=== PATIENT | female | born 1945 | race Caucasian/White ===

== ENCOUNTER 2017-10-28 15:54 | Emergency (ER) | payer MEDICARE ==
[~2017-10-28] VITALS: Ht 167.6 cm; Wt 68.0 kg
[~2017-10-28 15:54] MED LIST: AZO CRANBERRY250 MG PO; CEPHALEXIN500 MG PO
[2017-10-28] MEDS ORDERED: CIPRO250 MG PO (16:49)
== END 2017-10-28 17:02 | disposition home or self-care (01) ==
LOC: ED 15:54
DX: N39.0 Urinary tract infection, site not specified (principal); F17.200 Nicotine dependence, unspecified, uncomplicated
CPT/HCPCS: 81001; 99283

== ENCOUNTER 2018-12-27 08:35 | Emergency (ER) | payer MEDICARE ==
[~2018-12-27] VITALS: Ht 167.6 cm; Wt 68.0 kg
[~2018-12-27 08:35] MED LIST changes: +CIPRO250 MG PO
--- OUTSIDE RECORDS SUMMARY | 2018-12-27 08:38 | XMS ---
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 Lizzie has no Care Guidelines for this patient. Ekta VISIT COUNT (12 MO.) 1 [facility] ED [address] [facility] TOTAL 2 NOTE: Visits indicate total known visits. ED/UCC VISIT TRACKING (12 MO.) 12/27/2018 08:35 [facility] [place] TYPE: Emergency COMPLAINT: - URINE PROBLEM 12/15/2018 10:56 [facility] [place] TYPE: Emergency DIAGNOSES: - Dysuria - Urinary Frequency - Acute cystitis without hematuria INPATIENT VISIT TRACKING (12 MO.) No inpatient visits to display in this time frame [email or web address]
[2018-12-27] MEDS ORDERED: KEFLEX500 MG PO (09:24)
== END 2018-12-27 09:32 | disposition home or self-care (01) ==
LOC: ED 08:35
DX: N30.91 Cystitis, unspecified with hematuria (principal); F17.200 Nicotine dependence, unspecified, uncomplicated
CPT/HCPCS: 81001; 87077; 87088; 87186; 99283

== ENCOUNTER 2019-07-07 11:02 | Emergency (ER) | payer MEDICARE ==
[~2019-07-07] VITALS: Ht 167.6 cm; Wt 68.0 kg
[~2019-07-07 11:02] MED LIST changes: +KEFLEX500 MG PO
[2019-07-07] MEDS ORDERED: NITROGLYCERIN0.4 MG SL (12:16)
--- NOTE | 2019-07-07 23:18 | EKG ---
[facility] [address] [place], [place] [address] Signed Normal sinus rhythm Inferior infarct , age undetermined Abnormal ECG No previous ECGs available Confirmed by EDDIE VASQUEZ MD ([id number]) on 07/07/2019 11:18:08 PM Electronically Signed By: EDDIE VASQUEZ MD 07/07/19 2318 PATIENT NAME: LUIS BROWN Electrocardiogram DATE OF : 43 PHYSICIAN: EDDIE VASQUEZ MD REPORT #: [id number] REPORT IS CONFIDENTIAL AND NOT TO BE RELEASED WITHOUT AUTHORIZATION
== END 2019-07-07 12:45 | disposition home or self-care (01) ==
LOC: ED 11:02
DX: R07.89 Other chest pain (principal); F17.200 Nicotine dependence, unspecified, uncomplicated
CPT/HCPCS: 71045; 80053; 83735; 84484; 85025; 93005; 93010; 99285-25; 99406

== ENCOUNTER 2021-02-10 07:49 | Emergency (ER) | payer MEDICARE ==
[~2021-02-10] VITALS: Ht 167.6 cm; Wt 63.5 kg
[~2021-02-10 07:49] MED LIST changes: +NITROGLYCERIN0.4 MG SL
--- OUTSIDE RECORDS SUMMARY | 2021-02-10 07:58 | XMS ---
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 - 2 Visits in 30 Days CARE PROVIDERS TOMAS BANKS Nurse Practitioner: Family Current PHONE: Unknown Lizzie has no Care Guidelines for this patient. E.Franco [facility] (12 MO.) [facility] [address] [place] [address] TOTAL 2 NOTE: Visits indicate total known visits. ED/C VISIT TRACKING (12 MO.) 02/10/2021 07:51 [facility] [place] TYPE: Emergency COMPLAINT: - POSS UTI 01/30/2021 12:09 [facility] TYPE: Emergency DIAGNOSES: - Dysuria - Acute cystitis with hematuria - Personal history of diseases of the skin and subcutaneous tissue - Encounter for issue of repeat prescription INPATIENT VISIT TRACKING (12 MO.) No inpatient visits to display in this time frame [id number]
[2021-02-10] MEDS ORDERED: BACTRIM DS TAB1 EACH PO (08:44)
== END 2021-02-10 09:06 | disposition home or self-care (01) ==
LOC: ED 07:49
DX: N39.0 Urinary tract infection, site not specified (principal); F17.200 Nicotine dependence, unspecified, uncomplicated
CPT/HCPCS: 81001; 87088; 99283